=== PATIENT | female | born 1935 | race African-American/Black ===

== ENCOUNTER 2018-05-12 21:38 | Emergency (ER) | payer MEDICARE ==
[~2018-05-12] VITALS: Ht 165.1 cm; Wt 52.2 kg
[2018-05-12] MEDS ORDERED: PROCHLORPERAZINE 10 MG/2 ML VIAL. IV ONE (22:30)
[2018-05-12] MEDS ORDERED: diphenhydrAMINE 50 MG/ML VIAL IVP ONE (22:30)
[2018-05-12] MEDS ORDERED: MORPHINE SULFATE 4 MG/ML DISP.SYRIN. IV ONE (22:30)
[2018-05-12] MEDS ORDERED: DEXAMETHASONE SOD PHOS 10 MG/ML VIAL IV ONE (23:00)
--- NOTE | 2018-05-12 23:41 | RAD ---
Examination: CT HEAD WO CONTRAST History: Headache. Hx lung cancer with metastatic brain cancer. Comparison/Correlation: None Findings: Axial images of the head were obtained without contrast. Atrophy and chronic ischemic change of the white matter are present. No midline shift or mass effect. No depressed fracture. Impression: No intracranial hemorrhage or mass lesion. Consider MRI of the brain without and with contrast if able for more definitive assessment of brain metastases. Electronically signed by: Diego Wolfe MD (05/12/2018 11:38 PM) [facility]
[2018-05-12 23:45] VITALS: BP 158/70
[2018-05-13] MEDS ORDERED: MEGE625O PO (00:26)
[2018-05-13] MEDS ORDERED: HYDR-3165 PO (00:26)
[2018-05-13] MEDS ORDERED: ONDA4TAB7 PO (00:26)
--- NOTE | 2018-05-13 00:39 | PHYS DOC ---
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 no fever, no chills, no neck pain Review of Systems Review of Systems Constitutional: Denies fever or chills [] Eyes: Denies change in visual acuity, redness, or eye pain [] HENT: Denies nasal congestion or sore throat [] Respiratory: Denies cough or shortness of breath [] Cardiovascular: No additional information not addressed in HPI [] GI: Denies abdominal pain, nausea, vomiting, bloody stools or diarrhea [] : Denies dysuria or hematuria [] Musculoskeletal: Denies back pain or joint pain [] Integument: Denies rash or skin lesions [] Neurologic: Denies focal weakness or sensory changes [] Endocrine: Denies polyuria or polydipsia [] All other systems were reviewed and found to be within normal limits, except as documented in this note. Current Medications Current Medications Current Medications Medications (Trade) Dose Ordered Sig/Mark Start Time Stop Time Status Last Admin Dose Admin Dexamethasone Sodium Phosphate (Decadron) 10 mg 1X ONCE 05/12/18 23:00 05/12/18 23:01 DC 05/12/18 23:05 10 MG Diphenhydramine HCl (Benadryl) 12.5 mg 1X ONCE 05/12/18 22:30 05/12/18 22:31 DC 05/12/18 23:06 12.5 MG Morphine Sulfate (Morphine 4mg Syringe) 4 mg 1X ONCE 05/12/18 22:30 05/12/18 22:31 DC 05/12/18 23:06 4 MG Prochlorperazine Edisylate (Compazine) 10 mg 1X ONCE 05/12/18 22:30 05/12/18 22:31 DC 05/12/18 23:05 10 MG Allergies Allergies Allergies Coded Allergies Type Severity Reaction Last Updated Verified Penicillins Allergy Severe TONGUE SWELLING, VOMITING 05/12/18 Yes Physical Exam Physical Exam Constitutional: Well developed, well nourished, no acute distress, non-toxic appearance. [] HENT: Normocephalic, atraumatic, bilateral external ears normal, oropharynx moist, no oral exudates, nose normal. [] Eyes: PERRLA, EOMI, conjunctiva normal, no discharge. [] Neck: Normal range of motion, no tenderness, supple, no stridor. [] Cardiovascular:Heart rate regular rhythm, no murmur [] Lungs & Thorax: Bilateral breath sounds clear to auscultation [] Abdomen: Bowel sounds normal, soft, no tenderness, no masses, no pulsatile masses. [] Skin: Warm, dry, no erythema, no rash. [] Back: No tenderness, no CVA tenderness. [] Extremities: No tenderness, no cyanosis, no clubbing, ROM intact, no edema. [] Neurologic: Alert and oriented X 3, normal motor function, normal sensory function, no focal deficits noted. [] Psychologic: Affect normal, judgement normal, mood normal. [] Current Patient Data Vital Signs Vital Signs Date Time Temp Pulse Resp B/P (MAP) Pulse Ox O2 Delivery O2 Flow Rate FiO2 05/12/18 23:45 76 158/70 (99) 100 Room Air 05/12/18 23:06 18 05/12/18 22:00 98.5 EKG EKG [] Radiology/Procedures Radiology/Procedures ct negative [] Course & Med Decision Making Course & Med Decision Making Pertinent Labs and Imaging studies reviewed. (See chart for details) [] Final Impression Final Impression [] Problems: (1) Headache Qualifiers: Qualified Codes: R51 - Headache Dragon Disclaimer Dragon Disclaimer This electronic medical record was generated, in whole or in part, using a voice recognition dictation system. KRISTEN MARIN MD May 13, 2018 00:39
== END 2018-05-13 00:25 | disposition home or self-care (01) ==
LOC: ER 21:38
DX: R51 Headache (principal); C34.90 Malignant neoplasm of unspecified part of unspecified bronchus or lung; C79.31 Secondary malignant neoplasm of brain; Z88.0 Allergy status to penicillin
CPT/HCPCS: 70450; 96374; 96375; 99284; J0780; J1100; J1200; J2270

== ENCOUNTER → 2018-07-14 | Outpatient (CLI) | payer MEDICARE ==
[~2018-07-14] MED LIST: HYDR-3165 PO; IOHEXOL 300 MG/ML 75 ML VIAL. IV ONE; MEGE625O PO; ONDA4TAB7 PO
--- NOTE | 2018-07-14 12:23 | RAD ---
PQRS Compliance statement: One or more of the following individualized dose reduction techniques were utilized for this examination: 1. Automated exposure control. 2. Adjustment of the mA and/or kV according to patient size. 3. Use of iterative reconstruction technique. Indication:ELEVATED D-DIMER. AFTER SCANNED WITHOUT, DOCTORS OFFICER CALLED AND CHANGED TO ANGIO CHEST.
75MLS OMNI 300 IV CONTRAST TECHNIQUE: CT angiogram of the chest without and with IV contrast with multiplanar MIP reformats. COMPARISON: None FINDINGS: Diagnostic quality PE study. Filling defect is seen in the pulmonary arteries supplying left lower lobe. Rest of the central, segmental or subsegmental pulmonary arteries demonstrate no evidence of filling defects. Heart is normal in size. No pericardial or pleural effusion. Mild diffuse atherosclerotic disease of the thoracic aorta. No enlarged axillary, mediastinal or hilar adenopathy. Central airways are patent. Mild diffuse emphysema. Right chest wall Chemo-Port is seen with its tip in the SVC. Visualized sections through the liver, spleen, pancreas, adrenals and kidneys within normal limits. No suspicious bony lesion. IMPRESSION: 1. 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 2. Mild diffuse emphysema. Electronically signed by: Anil Terrell DO (07/14/2018 12:21 PM) [id number]
--- NOTE | 2018-07-14 14:57 | RAD ---
Ultrasound venous Doppler INDICATION:Elevated d-dimer. TECHNIQUE: Grayscale, color Doppler and spectral waveform ultrasound images of the bilateral lower extremities deep veins obtained. COMPARISON: None FINDINGS: The interrogated deep veins are compressible and demonstrate evidence of blood flow with normal respiratory variation and response to augmentation. IMPRESSION: No sonographic evidence of acute DVT of the bilateral lower extremity deep veins. Electronically signed by: Anil Terrell DO (07/14/2018 2:54 PM) [id number]
== END | disposition home or self-care (01) ==
LOC: CT 09:53
PROVIDERS: ATTEND Family Medicine
DX: J43.9 Emphysema, unspecified (principal); I70.0 Atherosclerosis of aorta; I27.82 Chronic pulmonary embolism; R79.1 Abnormal coagulation profile; M79.606 Pain in leg, unspecified; Z85.118 Personal history of other malignant neoplasm of bronchus and lung
CPT/HCPCS: 71275; 93970; Q9967

== ENCOUNTER 2018-11-06 06:13 | Emergency (ER) | payer MEDICARE ==
[~2018-11-06] VITALS: Ht 165.1 cm; Wt 61.2 kg
[~2018-11-06 06:13] MED LIST changes: +EPINEPHrine SYRINGE 1 MG/10 ML SYRINGE ONE; -IOHEXOL 300 MG/ML 75 ML VIAL. IV ONE
[2018-11-06] MEDS ORDERED: ONDANSETRON PF 4 MG/2 ML VIAL. IV ONE (06:30)
[2018-11-06] MEDS ORDERED: IV NORMAL SALINE 1,000ML 1,000 ML IV SCH (06:30)
[2018-11-06 06:55] LABS: BASO # 0.1 x10^3/uL (0.0-0.2); BASO % 1 % (0-3); EOS % 1 % (0-3); HEMATOCRIT 38.2 % (36.0-47.0); HEMOGLOBIN 12.4 g/dL (12.0-15.5); LYMPH # 2.8 x10^3/uL (1.0-4.8); LYMPH % 50 % (24-48); MEAN CORPUSCULAR HEMOGLOBIN 28 pg (25-35); MEAN CORPUSCULAR HGB CONC 33 g/dL (31-37); MEAN CORPUSCULAR VOLUME 86 fL (79-100); MONO # 0.1 x10^3/uL (0.0-1.1); MONO % 2 % (0-9); NEUT # 2.6 x10^3uL (1.8-7.7); NEUT % 47 % (31-73); PLATELET COUNT 202 x10^3/uL (140-400); RED BLOOD COUNT 4.45 x10^6/uL (3.50-5.40); RED CELL DISTRIBUTION WIDTH 14.4 % (11.5-14.5); WHITE BLOOD COUNT 5.6 x10^3/uL (4.0-11.0)
--- NOTE | 2018-11-06 06:55 | EKG ---
[address] [address] Test Date: 2018-11-06 Test Time: 06:43:08 Pat Name: BRIDGET EDWARDS Department: Room: Gender: F Learning Program Manager: : [id number] Requested By: EDSON LOUISE Order Number: [id number] Reading MD: Measurements Intervals [place] Rate: 92 P: 75 RI: 156 QRS: 47 QRSD: 72 T: 101 QT: 344 QTc: 430 Interpretive Statements SINUS RHYTHM LOW LIMB LEAD VOLTAGE ST & T ABNORMALITY, CONSIDER ANTERIOR ISCHEMIA OR LEFT VENTRICULAR STRAIN T ABNORMALITY IN LATERAL LEADS ABNORMAL ECG RI6.01 No previous ECG available for comparison
[2018-11-06] MEDS ORDERED: ROCURONIUM 50 MG/5 ML VIAL. ONE (07:00)
[2018-11-06] MEDS ORDERED: LIDOCAINE 2% SYRINGE 100 MG/5 ML DISP.SYRIN. ONE (07:00)
[2018-11-06] MEDS ORDERED: ETOMIDATE 40 MG/20 ML VIAL. IV ONE (07:00)
[2018-11-06 07:05] LABS: BGAS PH 7.38 (7.35-7.45)
[2018-11-06 07:10] VITALS: BP 124/87
[2018-11-06 07:12] LABS: ALBUMIN 3.1 g/dL (3.4-5.0); ALBUMIN/GLOBULIN RATIO 0.8 (1.0-1.7); GFR 64.4; MAGNESIUM 1.7 mg/dL (1.8-2.4); POTASSIUM 3.6 mmol/L (3.5-5.1); TOTAL BILIRUBIN 0.3 mg/dL (0.2-1.0)
--- NOTE | 2018-11-06 07:13 | PHYS DOC ---
Past History Past Medical History: Cancer (small cell lung cancer), Hypertension, Other Past Surgical History: Appendectomy, Cholecystectomy, Other Alcohol Use: Occasionally Drug Use: None Adult General HPI HPI Patient is a 82-year-old female presents by EMS due to chest pain that started approximately 4:30 this morning. History is limited due to unstable patient, because as she was delivering her history she started having nausea and vomiting and then went into cardiac arrest. 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 Current Medications Current Medications Current Medications Medications (Trade) Dose Ordered Sig/Mark Start Time Stop Time Status Last Admin Dose Admin Lorazepam (Ativan Inj) 2 mg STK-MED ONCE 11/06/18 06:17 11/06/18 06:18 DC Ondansetron HCl (Zofran) 8 mg 1X ONCE 11/06/18 06:30 11/06/18 06:31 UNV Sodium Chloride 1,000 ml @ 1,000 mls/hr Q1H 11/06/18 06:27 11/06/18 07:26 UNV Allergies Allergies Allergies Coded Allergies Type Severity Reaction Last Updated Verified Penicillins Allergy Severe TONGUE SWELLING, VOMITING 05/12/18 Yes Physical Exam Physical Exam Constitutional: Well developed, well nourished, no acute distress, non-toxic appearance. [] HENT: Normocephalic, atraumatic, bilateral external ears normal, oropharynx moist, no oral exudates, nose normal. [] Eyes: PERRLA, EOMI, conjunctiva normal, no discharge. [] Neck: Normal range of motion, no tenderness, supple, no stridor. [] Cardiovascular:Heart rate regular rhythm, no murmur [] Lungs & Thorax: Bilateral breath sounds clear to auscultation [] Abdomen: Bowel sounds normal, soft, no tenderness, no masses, no pulsatile masses. [] Skin: Warm, dry, no erythema, no rash. [] Back: No tenderness, no CVA tenderness. [] Extremities: No tenderness, no cyanosis, no clubbing, ROM intact, no edema. [] Neurologic: Alert and oriented X 3, normal motor function, normal sensory function, no focal deficits noted. [] Psychologic: Affect normal, judgement normal, mood normal. [] EKG EKG EKG shows a sinus rhythm at 92 bpm, normal axis, QTC 430 seconds, ST depressions in V3 through V6. No ST elevations. Interpreted by me at 0643[] Radiology/Procedures Radiology/Procedures [] Course & Med Decision Making Course & Med Decision Making Pertinent Labs and Imaging studies reviewed. (See chart for details) ED course: As noted above patient very quickly within her emergency department stay developed nausea and vomiting, and she was being attached to the monitors. She had a brief series of convulsions and fell back to the bed. She was noted to be in V. fib. CPR was started as she was being attached to the defibrillator. She was defibrillated one time at 200 J. CPR was continued for approximately 1-2 minutes. During this time IV and intraosseous access was being established. During the pulse check it was noted that she had return of spontaneous circulat ion. EKG was obtained, a blood gas was obtained, RT was providing BVM respirations. Her sensorium improved while the decision process for intubation was being performed. She was maintaining her airway. And it was ultimately elected not to intubate her. Consultation was made with Dr. Armas at [facility] due to needing higher level of care given her lung cancer histor y, metastasis history, and cardiology with possible intervention necessary. Hypothermia protocol was initiated however, subsequently withdrawn due to her improving mental status. Critical care time of 35 minutes due to interpretation of EKG, laboratory t esting, imaging, direct bedside care, and consultation with specialists. Medical decision making: Patient with known small cell lung cancer with metastases to the brain who had a V. fib arrest. At this time electrolytes are pending. There is no evidence of a STEMI on EKG. And with return of spontaneous circulation along with her improving mental status, hypothermia protocol is not indicated at this time.[] Dragon Disclaimer Dragon Disclaimer This electronic medical record was generated, in whole or in part, using a voice recognition dictation system. Departure Departure: Impression: Primary Impression: Chest pain Additional Impressions: Nausea & vomiting Cardiac arrest with ventricular fibrillation Signs of return of spontaneous circulation Disposition: 05 TRANSFER OTHER Condition: IMPROVED Referrals: RHONDA VALDOVINOS MD (PCP) Problem Qualifiers Primary Impression: Chest pain Chest pain type: unspecified Qualified Codes: R07.9 - Chest pain, unspecified Additional Impressions: Nausea & vomiting Vomiting type: unspecified Vomiting Intractability: unspecified Qualified Codes: R11.2 - Nausea with vomiting, unspecified EDSON OLUISE DO Nov 06, 2018 07:13
[2018-11-06 07:34] LABS: BACTERIA,URINE FEW /HPF (0-FEW); BILIRUBIN,URINE NEG (NEG); CLARITY,URINE HAZY; COLOR,URINE AMBER; GLUCOSE,URINE NEG (NEG); NITRITE,URINE NEG (NEG); SQUAMOUS EPITHELIAL CELL,UR FEW /LPF; UROBILINOGEN,URINE 2 mg/dL (0.2 mg/dL)
--- NOTE | 2018-11-06 07:41 | RAD ---
Portable chest, 11/06/2018: HISTORY: Postcode chest pain A right Port-A-Cath extends to the level the atrial caval junction. The heart size is normal. There is moderate calcific plaquing and tortuosity of the thoracic aorta. There are mild right lung infiltrates which are most prominent in the parahilar region. There is underlying emphysema and scarring in both lungs. No pleural fluid or pneumothorax is seen. The bony structures are demineralized. IMPRESSION: 1. Mild right perihilar infiltrate suggesting pulmonary edema or pneumonia. 2. Underlying emphysema and fibrosis. Electronically signed by: Francisco Sauceda MD (11/06/2018 7:38 AM) [facility]
== END 2018-11-06 07:15 | disposition short-term general hospital (02) ==
LOC: ER 06:13
DX: I46.9 Cardiac arrest, cause unspecified (principal); I49.01 Ventricular fibrillation; R11.2 Nausea with vomiting, unspecified; C34.90 Malignant neoplasm of unspecified part of unspecified bronchus or lung; I10 Essential (primary) hypertension; Z88.0 Allergy status to penicillin
CPT/HCPCS: 36415; 36600; 51702; 71045; 80053; 81001; 82803; 83605; 83690; 83735; 83880; 84484; 85025; 85610; 85730; 92950; 93005; 99291; J0171